=== PATIENT | female | born 1965 | race Caucasian/White ===

== ENCOUNTER 2017-06-01 11:59 | Outpatient (CLI) | payer BC | END 2017-06-01 12:00 | disposition home or self-care (01) | LOC: BICMAMMO 11:59 | PROVIDERS: ATTEND Family Medicine | DX: Z12.31 Encounter for screening mammogram for malignant neoplasm of breast (principal) | CPT/HCPCS: 77063; 77067 ==

== ENCOUNTER 2017-08-14 08:38 | Outpatient (CLI) | payer BC ==
[2017-08-14 09:34] LABS: #Basophils 0.1 thou/uL (0.0-0.2); #Eosinphils 0.1 thou/uL (0.0-0.7); #Lymphocytes 1.7 thou/uL (1.20-3.40); #Monocytes 0.2 thou/uL (0.11-0.59); #Neutrophils 4.9 thou/uL (1.40-6.50); %Eosinophils 1.5 % (0.0-10.0); %Lymphocytes 24.2 % (21.0-51.0); %Monocytes 2.8 % (0.0-10.0); %Neutrophils 70.5 % (42.0-75.0); Hemoglobin 13.7 g/dL (12.0-16.0); Mean Corpuscular HGB CONC 33.9 g/dL (32.0-36.0); Mean Corpuscular Hemoglobin 33.6 pg (27.0-31.0); Mean Corpuscular Volume 99.2 fl (81.0-99.0); Mean Platelet Volume 7.5 fL (7.4-10.4); Platelet Count 224 thou/uL (130-400); Red Blood Cell (RBC) Count 4.08 mill/uL (4.20-5.40)
[2017-08-14 10:00] LABS: Anion Gap 7 mmol/L (10-20); BUN (Urea Nitrogen) 14 mg/dL (9.8-20.1); Calc. Creatinine Clearance 0 mL/min (70-130); Calcium 9.7 mg/dL (7.8-10.44); Carbon Dioxide 28 mmol/L (22-29); Chloride 107 mmol/L (98-107); Estimated GFR-MDRD 64; Glucose 172 mg/dL (70-105); Potassium 4.1 mmol/L (3.5-5.1); Sodium 138 mmol/L (136-145)
== END 2017-08-14 08:39 | disposition home or self-care (01) ==
LOC: LABBT 08:38
PROVIDERS: ATTEND Orthopaedic Surgery Hand Surgery
DX: Z01.812 Encounter for preprocedural laboratory examination (principal); M67.432 Ganglion, left wrist
CPT/HCPCS: 80048; 85025

== ENCOUNTER 2017-08-18 12:39 | Day surgery (SDC) | payer BC ==
[2017-08-14 08:49] VITALS: BMI 36.9
[~2017-08-18 12:39] MED LIST: Dexamethasone 20 MG/5 ML VIAL ONE; Lidocaine 1% PF 5 ML VIAL ONE; Ondansetron HCl/PF 4 MG/2 ML Vial ONE; PROPOFOL 200 MG/20 ML VIAL ONE
[2017-08-18] MEDS ORDERED: CEFAZOLIN/Water 2 GM/20 ML SYRINGE ONE (14:05)
[2017-08-18] MEDS ORDERED: Betamet Acet/Betamet Na Ph 30 MG/5 ML VIAL ONE (17:24)
[2017-08-18] MEDS ORDERED: Bupivacaine PF 0.5% 30 ML VIAL ONE (17:24)
[2017-08-18] MEDS ORDERED: Bacitracin Zinc Ointment 30 gm TUBE ONE (17:24)
[2017-08-18] MEDS ORDERED: Midazolam HCl 2 mg/2 ml Vial ONE ×3 (17:25→19:09)
[2017-08-18] MEDS ORDERED: Fentanyl 100 MCG/2 ML VIAL ONE (17:25)
[2017-08-18] MEDS ORDERED: Ketorolac Tromethamine 30 MG/ML VIAL ONE (19:52)
--- NOTE | 2017-08-18 19:58 | RAD ---
SINGLE VIEW OF THE LEFT WRIST 08/18/17 COMPARISON: None. HISTORY: ORIF of the left wrist. FINDINGS/IMPRESSION: A single limited fluoroscopic view of the left wrist is submitted for interpretation. There is a need le seen in the location of the first CMC joint. POS: [facility]
--- NOTE | 2017-08-19 14:37 | OP ---
DATE OF SURGERY: 08/18/2017 PREOPERATIVE DIAGNOSES: 1. Osteoarthritis of thumb carpometacarpal joint, stage 2. 2. Left volar wrist ganglion, articulating with the radioscaphoid joint with marked synovitis. POSTOPERATIVE DIAGNOSES: 1. Osteoarthritis of thumb carpometacarpal joint, stage 2. 2. Left volar wrist ganglion, articulating with the radioscaphoid joint with marked synovitis. PROCEDURE PERFORMED: 1. Arthrotomy of wrist with synovectomy. 2. Ganglion cyst excision palmar. 3. Thumb carpometacarpal injection under C-arm supervision. 4. A small joint arthrocentesis and then 3 cm ganglion excision. 5. A 3-cm ganglion around the radial artery and emanated from both the scapholunate and the radiosca phoid joint. DESCRIPTION OF PROCEDURE: After successful general LMA technique, limb was prepped and draped. Time out was done appropriately. Anesthesia performed general by GLACING MACHINE TENDER from [facility]. We then brought the C-arm into the field under sterile prep technique, we used a 25-gauge needle, 1-1 /2 inch long, identified the left thumb carpometacarpal injected with 1 mL of 0.5% Marcaine and 1 mL of Celestone. Then, we had outlined the incision centered over what appeared to be a 2-cm mass in diameter, slightl y radial artery and then care to skin. This was accomplished with dissection, we carried the dissect ion around the ganglion, protected all tendons and neurovascular excluding the palmar cutaneous branc h and final joint capsule it was lifted and elevated. The patient also had a same amount of fluid fr om the midpoint laterally. After we had done this, we then elevated the stalk, were taken all tendons and nerve structures flow. The radial artery had been dissected free from the mass. It was retracted from the cyst until we r eached the stalk. The stalk pierced through the radial carpal joint, we made a 3 mm opening for appr oximately 2-mm stalk, and at this point, we were able to make a hole in the ganglion cyst cavity, bruno rided the joints over its origin, scapholunate synovitis and then prepared for closure. Once closure was initiated by release of tourniquet, the patient then had hemostasis obtained, and prepared the s teps for closure of this. Once we had opened the joint, we saw the tenosynovium, performed tenosynov ectomy using a tenotomy scissor as in a small baby rongeur. We released the tourniquet at this point, a ganglion cyst cavity and fluid was sent to the lab for pa thological specimen identification. Once hemostasis was obtained, including use of Bovie and electrocautery as well as metallic standard clips, we then performed hemostasis in superficial layers as well. We then closed the retinaculum ba ck to itself with a 2-0 suture interrupted. The patient had the excellent hemostasis now to close th e deep dermis with a Monocryl suture 4-0 interrupted and a 4-0 nylon interrupted for closure of skin.
== END 2017-08-18 20:22 | disposition home or self-care (01) ==
LOC: SDC 12:39
PROVIDERS: ATTEND Orthopaedic Surgery Hand Surgery
PROC: 0RBP0ZZ Excision of Left Wrist Joint, Open Approach (ICD-10-PCS; principal; 2017-08-18)
PROC: 0LB60ZZ Excision of Left Lower Arm and Wrist Tendon, Open Approach (ICD-10-PCS; principal; 2017-08-18)
DX: M67.432 Ganglion, left wrist (principal); M18.12 Unilateral primary osteoarthritis of first carpometacarpal joint, left hand; I10 Essential (primary) hypertension; K21.9 Gastro-esophageal reflux disease without esophagitis; J45.909 Unspecified asthma, uncomplicated; G43.909 Migraine, unspecified, not intractable, without status migrainosus; E11.319 Type 2 diabetes mellitus with unspecified diabetic retinopathy without macular edema; E66.01 Morbid (severe) obesity due to excess calories; Z68.36 Body mass index [BMI] 36.0-36.9, adult; Z88.5 Allergy status to narcotic agent; Z87.891 Personal history of nicotine dependence; Z79.52 Long term (current) use of systemic steroids; Z79.84 Long term (current) use of oral hypoglycemic drugs; Z79.82 Long term (current) use of aspirin; Z79.899 Other long term (current) drug therapy
CPT/HCPCS: 36416; 76000; 88304; 96372; 96374; J0702; J1100; J1885; J2001; J2250; J2405; J2704; J3010; J7620; S0020

== ENCOUNTER 2018-07-02 09:28 | Outpatient (CLI) | payer OTHER ==
--- NOTE | 2018-07-02 10:27 | MMO ---
Bilateral MAMMO Bilat Screen [facility]. CLINICAL HISTORY: Patient is 53 years old and is seen for screening. The patient has no family history of breast cancer. The patient has no personal history of cancer. VIEWS: The views performed were: bilateral craniocaudal with tomosynthesis; bilateral mediolateral oblique with tomosynthesis; and right mediolateral oblique. FILMS COMPARED: The present examination has been compared to prior imaging studies performed at [facility] on 07/20/2009, 08/12/2010, 04/30/2015, 05/02/2016 and 06/01/2017, and at [facility] [place] on 11/15/1999. MAMMOGRAM FINDINGS: There are scattered fibroglandular densities. There are no suspicious masses, suspicious calcifications, or new areas of architectural distortion. IMPRESSION: THERE IS NO MAMMOGRAPHIC EVIDENCE OF MALIGNANCY. A ROUTINE FOLLOW-UP MAMMOGRAM IN 1 YEAR IS RECOMMENDED. THE RESULTS OF THIS EXAM WERE SENT TO THE PATIENT. ACR BI-RADS Category 1 - Negative MAMMOGRAPHY NOTE: 1. A negative mammogram report should not delay a biopsy if a dominant of clinically suspicious mass is present. 2. Approximately 10% to 15% of breast cancers are not detected by mammography. 3. Adenosis and dense breasts may obscure an underlying neoplasm.
== END 2018-07-02 09:29 | disposition home or self-care (01) ==
LOC: BICMAMMO 09:28
PROVIDERS: ATTEND Family Medicine
DX: Z12.31 Encounter for screening mammogram for malignant neoplasm of breast (principal)
CPT/HCPCS: 77063; 77067

== ENCOUNTER 2019-04-08 12:22 | Outpatient (CLI) | payer OTHER ==
--- NOTE | 2019-04-08 13:30 | ULT ---
EXAM: Right lower extremity venous Doppler US HISTORY: Right lower extremity edema and pain FINDINGS: Grayscale, color-flow, Doppler evaluation, spectral analysis of the right lower extremity venous stru ctures is performed with 2-D imaging. The right common femoral, superficial femoral, popliteal, posterior tibial, proximal greater saphenous and profunda femoral veins are imaged. There is normal luminal compressibility, flow, and augmentation the visualized deep venous structures of the right lower extremity. There is a avascular cyst in the right popliteal fossa with internal debris measuring 6.5 x 1.6 x 2.5 cm, consistent with Malave's cyst. There is a cystic area in the proximal right medial calf with internal debris measuring 4.8 x 1.5 x 1.5 cm. A couple of focal areas of fluid collection with solid debris is seen in the regions of pain in the right leg with solid soft tissues. IMPRESSION: 1. No evidence of a deep vein thrombosis in the right lower extremity. 2. 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 Complex cystic masses in the soft tissues of the right leg of uncertain origin/etiology. Clinical correlation is recommended. If indicated MRI would be helpful.
== END 2019-04-08 12:23 | disposition home or self-care (01) ==
LOC: SCSULT 12:22
PROVIDERS: ATTEND Family Medicine
DX: M79.604 Pain in right leg (principal); M71.21 Synovial cyst of popliteal space [Baker], right knee; M79.89 Other specified soft tissue disorders
CPT/HCPCS: 36415; 80053; 83036; 85025; 85652; 86038; 86225

== ENCOUNTER 2021-07-12 08:54 | Outpatient (CLI) | payer OTHER | END 2021-07-12 08:55 | disposition home or self-care (01) | LOC: BICMAMMO 08:54 | PROVIDERS: ATTEND Family Medicine | DX: Z12.31 Encounter for screening mammogram for malignant neoplasm of breast (principal) | CPT/HCPCS: 77063; 77067 ==

== ENCOUNTER 2024-01-28 13:12 | Outpatient (CLI) | payer OTHER | END 2024-01-28 13:13 | disposition home or self-care (01) | LOC: BICRAD 13:12 | PROVIDERS: ATTEND Family Medicine | DX: Z01.818 Encounter for other preprocedural examination (principal) | CPT/HCPCS: 71046 ==

== ENCOUNTER 2024-12-26 09:09 | Outpatient (CLI) | payer OTHER | END 2024-12-26 09:10 | disposition home or self-care (01) | LOC: BICMAMMO 09:09 | PROVIDERS: ATTEND Family Medicine | DX: Z12.31 Encounter for screening mammogram for malignant neoplasm of breast (principal) | CPT/HCPCS: 77063; 77067 ==